=== PATIENT | female | born 1940 | race Caucasian/White ===

== ENCOUNTER → 2016-04-15 | Outpatient (CLI) | payer MEDICARE, OTHER ==
[~2016-04-15] MED LIST: ACCU20TA3 OR; ALPR.25 PO; ASPI81TA82 PO; CRES10TA PO; FLUTI220I INH; JANU50TA5 PO; NATE60TA2 OR; TAB-TAB PO; VITA100018 PO
[2016-04-15 09:41] LABS: AUTOMATED NEUTROPHIL # 4.3 TH/MM3 (1.8-7.7); BASOPHIL # 0.1 TH/MM3 (0-0.2); EOSINOPHIL # 0.2 TH/MM3 (0-0.4); EOSINOPHIL % 3.6 % (0.0-4.0); HEMATOCRIT 39.7 % (35.0-46.0); HEMO FLAGS DIFF FINAL; LYMPH % 18.4 % (9.0-44.0); LYMPHOCYTE # 1.2 TH/MM3 (1.0-4.8); MEAN CELL VOLUME 85.8 FL (80.0-100.0); MEAN CORPUSCULAR HEMOGLOBIN 28.5 PG (27.0-34.0); MEAN CORPUSCULAR HGB CONC 33.2 % (32.0-36.0); MONO % 8.1 % (0.0-8.0); NEUT % 68.9 % (16.0-70.0); PLATELET COUNT 247 TH/MM3 (150-450); RED BLOOD COUNT 4.63 MIL/MM3 (4.00-5.30); RED CELL DISTRIBUTION WIDTH 14.4 % (11.6-17.2); WHITE BLOOD COUNT 6.3 TH/MM3 (4.0-11.0)
[2016-04-15 10:09] LABS: ALKALINE PHOSPHATASE 88 U/L (45-117); ALT (GPT) 16 U/L (10-53); ANION GAP 9 MEQ/L (5-15); AST (GOT) 11 U/L (15-37); BICARBONATE 28.5 MEQ/L (21.0-32.0); BLOOD UREA NITROGEN 20 MG/DL (7-18); CHLORIDE 103 MEQ/L (98-107); GLOMERULAR FILTRATION RATE 62 ML/MIN (>89); GLUCOSE,FASTING 140 MG/DL (74-99); HDL CHOLESTEROL 60.1 MG/DL (40.0-60.0); LDL CHOLESTEROL 138 MG/DL (0-99); POTASSIUM 4.2 MEQ/L (3.5-5.1); SODIUM (NA) 140 MEQ/L (136-145); TOTAL BILIRUBIN ADULT 0.2 MG/DL (0.2-1.0)
[2016-04-15 16:27] LABS: HEMOGLOBIN A1a 1.5 %; HEMOGLOBIN Ao 79.1 %; HEMOGLOBIN F 2.3 %; HEMOGLOBIN LA1C 2.4 %; HEMOGLOBIN P3 4.7 %
== END ==
LOC: PLAB 07:29
PROVIDERS: ATTEND Family Medicine
DX: M85.80 Other specified disorders of bone density and structure, unspecified site (principal)
CPT/HCPCS: 36415; 80053; 80061; 82306; 83036; 84443; 85025

== ENCOUNTER → 2016-06-24 | Outpatient (CLI) | payer MEDICARE, OTHER ==
[2016-06-24 17:47] LABS: FREE T4 1.02 NG/DL (0.76-1.46)
== END ==
LOC: PLAB 15:23
PROVIDERS: ATTEND Internal Medicine Endocrinology, Diabetes & Metabolism
DX: E04.2 Nontoxic multinodular goiter (principal)
CPT/HCPCS: 36415; 84439; 84443

== ENCOUNTER → 2016-07-13 | Outpatient (CLI) | payer MEDICARE, OTHER ==
[2016-07-13 10:13] LABS: HEMOGLOBIN A1a 1.7 %; HEMOGLOBIN Ao 79.2 %; HEMOGLOBIN F 2.4 %; HEMOGLOBIN LA1C 2.4 %; HEMOGLOBIN P3 4.6 %
[2016-07-13 10:27] LABS: MICRO ALBUMIN RANDOM URINE RAW 21.2 MG/L (0.0-30.0)
[2016-07-13 10:45] LABS: ALKALINE PHOSPHATASE 81 U/L (45-117); ALT (GPT) 18 U/L (10-53); ANION GAP 8 MEQ/L (5-15); AST (GOT) 12 U/L (15-37); BICARBONATE 30.2 MEQ/L (21.0-32.0); BLOOD UREA NITROGEN 17 MG/DL (7-18); CHLORIDE 102 MEQ/L (98-107); GLOMERULAR FILTRATION RATE 59 ML/MIN (>89); GLUCOSE,FASTING 148 MG/DL (74-99); HDL CHOLESTEROL 63.4 MG/DL (40.0-60.0); LDL CHOLESTEROL 74 MG/DL (0-99); POTASSIUM 4.4 MEQ/L (3.5-5.1); SODIUM (NA) 140 MEQ/L (136-145); TOTAL BILIRUBIN ADULT 0.3 MG/DL (0.2-1.0)
== END ==
LOC: PLAB 07:35
PROVIDERS: ATTEND Family Medicine
DX: I10 Essential (primary) hypertension (principal); E78.5 Hyperlipidemia, unspecified; E11.9 Type 2 diabetes mellitus without complications
CPT/HCPCS: 36415; 80053; 80061; 82043; 83036

== ENCOUNTER → 2016-09-22 | Outpatient (CLI) | payer MEDICARE, OTHER ==
[2016-09-22 08:50] LABS: CHLORIDE 105 MEQ/L (98-107); POTASSIUM 4.3 MEQ/L (3.5-5.1); SODIUM (NA) 141 MEQ/L (136-145)
[2016-09-22 08:54] LABS: ANION GAP 7 MEQ/L (5-15); BICARBONATE 28.7 MEQ/L (21.0-32.0); BLOOD UREA NITROGEN 19 MG/DL (7-18); GLUCOSE,FASTING 126 MG/DL (74-99); MAGNESIUM 2.4 MG/DL (1.5-2.5)
[2016-09-22 08:57] LABS: ALT (GPT) 20 U/L (10-53); AST (GOT) 17 U/L (15-37); GLOMERULAR FILTRATION RATE 56 ML/MIN (>89)
[2016-09-22 08:58] LABS: TOTAL BILIRUBIN ADULT 0.3 MG/DL (0.2-1.0)
[2016-09-22 09:00] LABS: ALKALINE PHOSPHATASE 72 U/L (45-117)
[2016-09-22 10:47] LABS: HEMOGLOBIN A1a 1.6 %; HEMOGLOBIN Ao 79.5 %; HEMOGLOBIN F 2.4 %; HEMOGLOBIN LA1C 2.3 %; HEMOGLOBIN P3 4.8 %
== END ==
LOC: PLAB 07:24
PROVIDERS: ATTEND Internal Medicine Endocrinology, Diabetes & Metabolism
DX: E11.65 Type 2 diabetes mellitus with hyperglycemia (principal)
CPT/HCPCS: 36415; 80053; 83036; 83735

== ENCOUNTER → 2016-11-30 | Outpatient (CLI) | payer MEDICARE, OTHER ==
[2016-11-30 09:37] LABS: ANION GAP 6 MEQ/L (5-15); AST (GOT) 16 U/L (15-37); BLOOD UREA NITROGEN 20 MG/DL (7-18); CHLORIDE 104 MEQ/L (98-107); GLOMERULAR FILTRATION RATE 65 ML/MIN (>89); POTASSIUM 4.2 MEQ/L (3.5-5.1); SODIUM (NA) 138 MEQ/L (136-145)
[2016-11-30 09:39] LABS: GLUCOSE,FASTING 126 MG/DL (74-99)
[2016-11-30 09:45] LABS: ALKALINE PHOSPHATASE 68 U/L (45-117); ALT (GPT) 17 U/L (10-53); HDL CHOLESTEROL 56.5 MG/DL (40.0-60.0); LDL CHOLESTEROL 91 MG/DL (0-99); LDL CHOLESTEROL DIRECT 92 MG/DL (0-99); TOTAL BILIRUBIN ADULT 0.3 MG/DL (0.2-1.0)
[2016-11-30 10:23] LABS: BACTERIA, URINE RARE /hpf; BLOOD, URINE TRACE (NEG); GLUCOSE,URINE NEG (NEG); KETONE, URINE NEG (NEG); NITRITE,URINE NEG (NEG); SQUAMOUS EPITHELIAL CELL URINE 4 /hpf (0-5); URINE COLOR YELLOW (YELLW/STRAW)
[2016-11-30 10:47] LABS: MICRO ALBUMIN RANDOM URINE RAW 8.7 MG/L (0.0-30.0)
== END ==
LOC: PLAB 07:48
PROVIDERS: ATTEND Family Medicine
DX: E78.5 Hyperlipidemia, unspecified (principal); I12.9 Hypertensive chronic kidney disease with stage 1 through stage 4 chronic kidney disease, or unspecified chronic kidney disease; E11.9 Type 2 diabetes mellitus without complications; N18.3 Chronic kidney disease, stage 3 (moderate)
CPT/HCPCS: 36415; 80053; 80061; 81001; 82043; 82306; 83721; 83970

== ENCOUNTER → 2017-01-25 | Outpatient (CLI) | payer MEDICARE, OTHER ==
[2017-01-25 10:13] LABS: ANION GAP 7 MEQ/L (5-15); AST (GOT) 12 U/L (15-37); BICARBONATE 28.3 MEQ/L (21.0-32.0); BLOOD UREA NITROGEN 21 MG/DL (7-18); CHLORIDE 103 MEQ/L (98-107); GLOMERULAR FILTRATION RATE 61 ML/MIN (>89); GLUCOSE,FASTING 129 MG/DL (74-99); POTASSIUM 4.2 MEQ/L (3.5-5.1); SODIUM (NA) 138 MEQ/L (136-145)
[2017-01-25 10:19] LABS: ALKALINE PHOSPHATASE 68 U/L (45-117); ALT (GPT) 18 U/L (10-53); TOTAL BILIRUBIN ADULT 0.3 MG/DL (0.2-1.0)
[2017-01-25 15:23] LABS: HEMOGLOBIN A1a 1.7 %; HEMOGLOBIN Ao 79.8 %; HEMOGLOBIN F 2.4 %; HEMOGLOBIN LA1C 2.3 %; HEMOGLOBIN P3 4.6 %
== END ==
LOC: PLAB 07:16
PROVIDERS: ATTEND Internal Medicine Endocrinology, Diabetes & Metabolism
DX: E11.65 Type 2 diabetes mellitus with hyperglycemia (principal)
CPT/HCPCS: 36415; 80053; 83036

== ENCOUNTER → 2017-04-14 | Outpatient (CLI) | payer MEDICARE, OTHER ==
[2017-04-14 10:11] LABS: ALBUMIN 3.8 GM/DL (3.4-5.0); AST (GOT) 12 U/L (15-37); BICARBONATE 29.1 MEQ/L (21.0-32.0); BLOOD UREA NITROGEN 28 MG/DL (7-18); CALCIUM 9.1 MG/DL (8.5-10.1); CHLORIDE 103 MEQ/L (98-107); CREATININE 1.07 MG/DL (0.50-1.00); GLOMERULAR FILTRATION RATE 50 ML/MIN (>89); GLUCOSE,FASTING 131 MG/DL (74-99); SODIUM (NA) 138 MEQ/L (136-145)
[2017-04-14 10:12] LABS: ALT (GPT) 17 U/L (10-53); CHOLESTEROL 182 MG/DL (120-200)
[2017-04-14 10:21] LABS: ALKALINE PHOSPHATASE 70 U/L (45-117); CHOLESTEROL/ HDL RATIO 3.14 RATIO; FREE T4 1.09 NG/DL (0.76-1.46); HDL CHOLESTEROL 57.8 MG/DL (40.0-60.0); LDL CHOLESTEROL 91 MG/DL (0-99); TOTAL BILIRUBIN ADULT 0.3 MG/DL (0.2-1.0); TOTAL PROTEIN 7.7 GM/DL (6.4-8.2); TRIGLYCERIDES 166 MG/DL (42-150)
[2017-04-14 15:59] LABS: HEMOGLOBIN A1C 7.7 % (4.3-6.0)
== END ==
LOC: PLAB 07:41
PROVIDERS: ATTEND Internal Medicine Endocrinology, Diabetes & Metabolism
DX: E04.2 Nontoxic multinodular goiter (principal); E11.65 Type 2 diabetes mellitus with hyperglycemia; E78.5 Hyperlipidemia, unspecified
CPT/HCPCS: 36415; 80053; 80061; 82043; 83036; 84439; 84443

== ENCOUNTER → 2017-05-18 | Outpatient (CLI) | payer MEDICARE, OTHER | LOC: PLAB 09:57 | PROVIDERS: ATTEND Urology | DX: R31.1 Benign essential microscopic hematuria (principal) | CPT/HCPCS: 88112 ==

== ENCOUNTER → 2017-07-07 | Outpatient (CLI) | payer MEDICARE, OTHER ==
[2017-07-07 10:34] LABS: ALBUMIN 3.8 GM/DL (3.4-5.0); AST (GOT) 13 U/L (15-37); BICARBONATE 30.2 MEQ/L (21.0-32.0); CALCIUM 9.3 MG/DL (8.5-10.1); CHLORIDE 104 MEQ/L (98-107); CREATININE 1.03 MG/DL (0.50-1.00); GLOMERULAR FILTRATION RATE 52 ML/MIN (>89); GLUCOSE,FASTING 146 MG/DL (74-99); SODIUM (NA) 139 MEQ/L (136-145)
[2017-07-07 10:35] LABS: BLOOD UREA NITROGEN 18 MG/DL (7-18)
[2017-07-07 10:38] LABS: ALKALINE PHOSPHATASE 68 U/L (45-117); ALT (GPT) 16 U/L (10-53); TOTAL BILIRUBIN ADULT 0.3 MG/DL (0.2-1.0); TOTAL PROTEIN 7.5 GM/DL (6.4-8.2)
[2017-07-08 15:39] LABS: HEMOGLOBIN A1C 7.9 % (4.3-6.0)
== END ==
LOC: PLAB 06:42
PROVIDERS: ATTEND Internal Medicine Endocrinology, Diabetes & Metabolism
DX: E11.65 Type 2 diabetes mellitus with hyperglycemia (principal)
CPT/HCPCS: 36415; 80053; 82043; 83036

== ENCOUNTER → 2017-08-16 | Outpatient (CLI) | payer MEDICARE, OTHER ==
[2017-08-16 10:29] LABS: CHOLESTEROL 149 MG/DL (120-200); LDL CHOLESTEROL DIRECT 83 MG/DL (0-99); TRIGLYCERIDES 110 MG/DL (42-150)
[2017-08-16 10:30] LABS: CHOLESTEROL/ HDL RATIO 2.51 RATIO; HDL CHOLESTEROL 59.3 MG/DL (40.0-60.0); LDL CHOLESTEROL 68 MG/DL (0-99)
== END ==
LOC: PLAB 06:56
DX: E78.5 Hyperlipidemia, unspecified (principal)
CPT/HCPCS: 36415; 80061; 83721

== ENCOUNTER → 2017-10-04 | Outpatient (CLI) | payer MEDICARE, OTHER ==
[2017-10-04 10:19] LABS: ALBUMIN 3.8 GM/DL (3.4-5.0); BICARBONATE 28.6 MEQ/L (21.0-32.0); BLOOD UREA NITROGEN 20 MG/DL (7-18); CALCIUM 9.2 MG/DL (8.5-10.1); CHLORIDE 103 MEQ/L (98-107); CREATININE 0.96 MG/DL (0.50-1.00); GLOMERULAR FILTRATION RATE 57 ML/MIN (>89); GLUCOSE,FASTING 133 MG/DL (74-99); SODIUM (NA) 140 MEQ/L (136-145)
[2017-10-04 10:20] LABS: CHOLESTEROL 149 MG/DL (120-200)
[2017-10-04 10:26] LABS: ALKALINE PHOSPHATASE 73 U/L (45-117); ALT (GPT) 16 U/L (10-53); AST (GOT) 15 U/L (15-37); CHOLESTEROL/ HDL RATIO 2.56 RATIO; LDL CHOLESTEROL 70 MG/DL (0-99); TOTAL BILIRUBIN ADULT 0.2 MG/DL (0.2-1.0); TOTAL PROTEIN 7.6 GM/DL (6.4-8.2); TRIGLYCERIDES 103 MG/DL (42-150)
[2017-10-04 16:08] LABS: HEMOGLOBIN A1C 7.1 % (4.3-6.0)
== END ==
LOC: PLAB 07:18
PROVIDERS: ATTEND Internal Medicine Endocrinology, Diabetes & Metabolism
DX: E78.5 Hyperlipidemia, unspecified (principal); E11.65 Type 2 diabetes mellitus with hyperglycemia
CPT/HCPCS: 36415; 80053; 80061; 83036